=== PATIENT | male | born 2000 | race Caucasian/White ===

== ENCOUNTER 2022-06-30 15:55 | Emergency (ER) | payer OTHER ==
[~2022-06-30] VITALS: Ht 188 cm; Wt 90.9 kg
[2022-06-30 16:30] VITALS: BP 121/65; TEMP 98.2
[2022-06-30] MEDS ORDERED: FLEXERIL 1010 MG/TAB PO (18:04)
[2022-06-30] MEDS ORDERED: NAPROSYN500 MG PO (18:04)
[2022-06-30 18:38] VITALS: PULSE 65
== END 2022-06-30 18:38 | disposition home or self-care (01) ==
LOC: COL.ER 15:55
DX: M54.42 Lumbago with sciatica, left side (principal)
CPT/HCPCS: J1885